=== PATIENT | male | born 1965 | race Caucasian/White ===

== ENCOUNTER 2017-08-20 21:53 | Outpatient (CLI) | END 2017-08-20 21:54 | disposition home or self-care (01) | LOC: NONPT 21:53 | PROVIDERS: ATTEND General Practice | DX: I10 Essential (primary) hypertension (principal); R10.9 Unspecified abdominal pain; Z79.899 Other long term (current) drug therapy | CPT/HCPCS: 80053; 80061; 81001; 82150; 83690; 84443; 85025 ==